=== PATIENT | female | born 1995 | race Caucasian/White ===

== ENCOUNTER 2018-11-29 03:11 | Emergency (ER) | payer SELFPAY ==
[2018-11-29] MEDS ORDERED: NORMAL SALINE 1000 ML 1,000 ML IV ONE (05:21)
[2018-11-29] MEDS ORDERED: ONDANSETRON HCL INJ/PF 4 MG/2 ML SDV IV ONE (05:21)
--- NOTE | 2018-11-29 05:23 | ER Document Report ---
ED Medical Screen (RME) - General Chief Complaint: Vomiting Stated Complaint: ABDOMINAL PAIN Time Seen by Provider: 11/29/18 05:17 Notes: 23-year-old female with chief complaint of vomiting, vomiting blood, generalized upper abdominal pain. She drank a shot of tequila and several beers tonight reportedly. She states that she threw up more blood, threw up again but with less blood, and then the most recent time she threw up in the ED there was a tiny helen of blood in it. She reports being diagnosed with peptic ulcers but she has never had an endoscopy she is on oral contraceptive, no other meds. She denies frequent alcohol. TRAVEL OUTSIDE OF THE [place] IN LAST 30 DAYS: No Past Medical History - Social History Chew tobacco use (# tins/day): No Frequency of alcohol use: Social Drug Abuse: None Renal/ Medical History: Denies: Hx Peritoneal Dialysis GI Medical History: Reports: Hx Ulcer - GI ulcers Psychiatric Medical History: Reports: Hx Attention Deficit Hyperactivity Disorder Past Surgical History: Reports: Hx Tonsillectomy Physical Exam - Vital signs Vitals: Temp Pulse Resp BP Pulse Ox 98.0 F 122 H 16 112/71 97 11/29/18 03:20 11/29/18 03:20 11/29/18 03:20 11/29/18 03:20 11/29/18 03:20 - General General appearance: Appears well In distress: None - Cardiovascular Rhythm: Regular, Tachycardia Heart sounds: Normal auscultation, S1 appreciated, S2 appreciated - Abdominal Tenderness: Tender - Minimal generalized upper abdominal tenderness without guarding Course - Re-evaluation Re-evalutation: There is an emesis bag in the room with small amount of foamy vomit and questionable tiny amount of blood. Does not appear to have significant hematemesis occurring. Work-up pending. I have greeted and performed a rapid initial assessment of this patient. A comprehensive ED assessment and evaluation of the patient, analysis of test results and completion of the medical decision making process will be conducted by additional ED providers. - Vital Signs Vital signs: Temp Pulse Resp BP Pulse Ox 98.0 F 122 H 16 112/71 97 11/29/18 03:20 11/29/18 03:20 11/29/18 03:20 11/29/18 03:20 11/29/18 03:20
[2018-11-29 05:35] LABS: AMORPHOUS SEDIMENT,URINE TRACE /HPF; APPEARANCE,URINE SLIGHTLY-CLOUDY; BILIRUBIN,URINE NEGATIVE (NEGATIVE); COLOR,URINE STRAW; GLUCOSE, URINE NEGATIVE (NEGATIVE); KETONES,URINE NEGATIVE (NEGATIVE); LEUKOCYTE ESTERASE,URINE NEGATIVE (NEGATIVE); NITRITE,URINE NEGATIVE (NEGATIVE); PROTEIN,URINE NEGATIVE (NEGATIVE); URINE SPECIFIC GRAVITY 1.005; UROBILINOGEN,URINE NEGATIVE mg/dL (<2.0)
[2018-11-29 06:04] LABS: ABSOLUTE BASOPHILS # (AUTO) 0.1 10^3/uL (0.0-0.2); ABSOLUTE EOSINOPHILS # (AUTO) 0.3 10^3/uL (0.0-0.6); ABSOLUTE LYMPHOCYTES (AUTO) 2.1 10^3/uL (0.5-4.7); ABSOLUTE MONOCYTES (AUTO) 0.4 10^3/uL (0.1-1.4); ABSOLUTE NEUT (AUTO) 7.7 10^3/uL (1.7-8.2); BASOPHILS % (AUTO) 0.5 % (0-2); EOSINOPHILS % (AUTO) 2.7 % (0-6); HEMATOCRIT 42.9 % (36.0-47.0); HEMOGLOBIN 14.7 g/dL (12.0-15.5); LYMPHOCYTES % (AUTO) 20.2 % (13-45); MEAN CORPUSCULAR HEMOGLOBIN 27.7 pg (27.0-33.4); MEAN CORPUSCULAR HGB CONC 34.2 g/dL (32.0-36.0); MEAN CORPUSCULAR VOLUME 81 fl (80-97); MONOCYTES % (AUTO) 3.5 % (3-13); PLATELET COUNT 302 10^3/uL (150-450); RED CELL DISTRIBUTION WIDTH 12.8 % (11.5-14.0); SEGMENTED NEUTROPHILS % (AUTO) 73.1 % (42-78); TOTAL CELLS COUNTED % (AUTO) 100 %; WHITE BLOOD COUNT 10.5 10^3/uL (4.0-10.5)
[2018-11-29 06:18] LABS: ALANINE AMINOTRANSFERASE 12 U/L (9-52); ALBUMIN 3.7 g/dL (3.5-5.0); ALKALINE PHOSPHATASE 73 U/L (38-126); ANION GAP 8 (5-19); ASPARTATE AMINO TRANSFERASE 20 U/L (14-36); BILIRUBIN,DIRECT 0.2 mg/dL (0.0-0.4); BILIRUBIN,TOTAL 0.2 mg/dL (0.2-1.3); BLOOD UREA NITROGEN 8 mg/dL (7-20); CALCIUM 8.7 mg/dL (8.4-10.2); CARBON DIOXIDE 23 mmol/L (22-30); CHLORIDE 110 mmol/L (98-107); GLUCOSE 84 mg/dL (75-110); LIPASE 66.3 U/L (23-300); POTASSIUM 4.6 mmol/L (3.6-5.0); SODIUM 141.3 mmol/L (137-145); TOTAL PROTEIN 6.5 g/dL (6.3-8.2)
[2018-11-29] MEDS ORDERED: PANTOPRAZOLE SODIUM 40 MG VIAL IV ONE (06:57)
[2018-11-29] MEDS ORDERED: MAG HYDROX/AL HYDROX/SIMETH SUSP 30 ML UDCUP PO ONE (06:58)
[2018-11-29 07:17] LABS: ALCOHOL 157 mg/dL (NONE DETECTED)
--- NOTE | 2018-11-29 08:34 | ER Document Report ---
Entered by OSMAR BUSTILLOS SCRIBE 11/29/18 0657 Acting as scribe for:CHEMO NARANJO MD ED General - General Chief Complaint: Vomiting Stated Complaint: ABDOMINAL PAIN Time Seen by Provider: 11/29/18 05:17 Notes: Patient is a 23-year-old female presenting to the emergency department complaining of vomiting with associated abdominal pain. Patient states that she went out drinking last night at 21:00 and that she had one shot of tequila with 4 beers. Patient states that she drank until 02:00 and that at 02:30 she began hematemesis. Patient states that her last menstrual period. Patient states that she has a history of ulcers but has not had any for awhile. TRAVEL OUTSIDE OF THE [place] IN LAST 30 DAYS: No - Related Data Allergies/Adverse Reactions: No Known Allergies Allergy (Unverified 11/29/18 07:34) Past Medical History - General Information source: Patient - Social History Smoking Status: Current Every Day Smoker Chew tobacco use (# tins/day): No Frequency of alcohol use: Social Drug Abuse: None Family History: Reviewed & Not Pertinent Patient has suicidal ideation: No Patient has homicidal ideation: No GI Medical History: Reports: Hx Ulcer - GI ulcers Psychiatric Medical History: Reports: Hx Attention Deficit Hyperactivity Disorder Past Surgical History: Reports: Hx Tonsillectomy Review of Systems - Review of Systems Constitutional: No symptoms reported EENT: No symptoms reported Cardiovascular: No symptoms reported Respiratory: No symptoms reported Gastrointestinal: See HPI, Abdominal pain, Blood in vomit Genitourinary: No symptoms reported Female Genitourinary: No symptoms reported Musculoskeletal: No symptoms reported Skin: No symptoms reported Hematologic/Lymphatic: No symptoms reported Neurological/Psychological: No symptoms reported -: Yes All other systems reviewed and negative Physical Exam - Vital signs Vitals: Temp Pulse Resp BP Pulse Ox 98.0 F 122 H 16 112/71 97 11/29/18 03:20 11/29/18 03:20 11/29/18 03:20 11/29/18 03:20 11/29/18 03:20 - Notes Notes: Physical Exam: General: Alert, appears well, alcohol odor. HEENT: Normocephalic. Atraumatic. PERRL. Extraocular movements intact. Oropha rynx clear. Neck: Supple. Non-tender. Respiratory: No respiratory distress. Clear and equal breath sounds bilaterally. Cardiovascular: Regular rate and rhythm. Abdominal: Left lower abdomen mildly tenderness to palpation, epigastric tenderness to palpation. No distension. Normal Bowel Sounds. Back: Non-tender. No deformity or step off. Extremities: Moves all four extremities. Upper extremities: Normal inspection. Normal ROM. Lower extremities: Normal inspection. No edema. Normal ROM. Neurological: Normal cognition. AAOx4. Normal speech. Psychological: Normal affect. Normal Mood. Skin: Warm. Dry. Normal color. Course - Re-evaluation Re-evalutation: 11/29/18 08:34 No further vomiting since patient is been here. She is sleeping at this time. She is awakened for reevaluation. I did review what her real alcohol consumption was last night, she does not deny this. She is advised to avoid anything that could make an ulcer worse for the next several days. See the discharge instructions. - Vital Signs Vital signs: Temp Pulse Resp BP Pulse Ox 98.0 F 122 H 16 112/71 97 11/29/18 03:20 11/29/18 03:20 11/29/18 03:20 11/29/18 03:20 11/29/18 03:20 - Laboratory Result Diagrams: 11/29/18 05:50 11/29/18 05:50 Laboratory results interpreted by me: 11/29/18 11/29/18 11/29/18 05:10 05:50 05:50 RBC 5.30 H Chloride 110 H Urine Blood SMALL H Discharge - Discharge Clinical Impression: Hematemesis Qualifiers: Nausea presence: with nausea Qualified Code(s): K92.0 - Hematemesis Acute alcohol intoxication Qualifiers: Complication of substance-induced condition: uncomplicated Qualified Code(s): F10.920 - Alcohol use, unspecified with intoxication, uncomplicated Condition: Stable Disposition: HOME, SELF-CARE Additional Instructions: Acute Alcohol Intoxication Your evaluation revealed very high levels of alcohol. You can from drinking a large amount of alcohol rapidly! Further, there's the risk of falls, traffic accidents, and fights. A high portion (about 50 percent) of the serious injuries seen in hospital emergency rooms are caused by alcohol. Alcohol overdosage is usually due to an underlying emotional or psychiatric problem. You may benefit from counselling. If "binge" drinking is an ongoing problem for you, or if you drink ANY AMOU NT of alcohol EVERY day, you most likely have a tendency to alcoholism. You should avoid alcohol totally. We can refer you for treatment. Persons with alcohol problems are often also prone to other addictions -- you should discuss any use of medications or drugs with the doctor. You should be watched at home for the next several hours by someone who has not been drinking. Get extra fluids for the next 24 hours. Call the doctor if there is repeated vomiting, increasing headache, decreasing level of alertness, or any other worsening. Ulcer You MAY have an ulcer. An ulcer is an erosion of the lining of the stomach or duodenum. It's a hole "burned out" by acid. Typically, this causes a burning or gnawing upper abdominal pain. Bleeding may occur from the ulcer. Ulcers may be started by alcohol or medicines, or by infection of the stomach. Antacids may be taken for pain, and may allow the ulcer to heal when taken after meals and at bedtime. More commonly, acid- suppressing drugs or ulcer- protective drugs (like Carafate) are prescribed. Avoid aspirin, ibuprofen, caffeine, tobacco, and alcohol. Repeat tests to confirm healing of the ulcer may be necessary. Some ulcers seem to be brought on by infection. If the doctor feels this is likely, you may be treated with bismuth for several weeks. If the abdominal pain worsens, or there's evidence of bleeding (such as black, tarry stool, bloody or black vomit, or lightheadedness), you should call the doctor or return immediately. Your episodes of vomiting blood was most likely related to the heavy alcohol consumption this evening. You should drink plenty of water today. Avoid spicy foods, citrus type drinks, carbonated beverages, alcohol. Take antacids today between meals and at bedtime. Do not take aspirin, Motrin, or Aleve. Take Prilosec OTC twice daily for the next several days. Follow-up with a local primary care provider if not improving. RETURN TO THE EMERGENCY ROOM IF ANY NEW OR WORSENING SYMPTOMS. Scribe Attestation: 11/29/18 08:16 I personally performed the services described in the documentation, reviewed and edited the documentation which was dictated to the scribe in my presence, and it accurately records my words and actions. I personally performed the services described in the documentation, reviewed and edited the documentation which was dictated to the scribe in my presence, and it accurately records my words and actions.
[2018-11-29 09:08] VITALS: BP 94/45
== END 2018-11-29 09:10 | disposition home or self-care (01) ==
LOC: ER 03:11
DX: K92.0 Hematemesis (principal); F10.120 Alcohol abuse with intoxication, uncomplicated; R10.9 Unspecified abdominal pain; F17.200 Nicotine dependence, unspecified, uncomplicated; R10.816 Epigastric abdominal tenderness; R10.819 Abdominal tenderness, unspecified site; Z87.11 Personal history of peptic ulcer disease
CPT/HCPCS: 99284; 36415; 80307; 83690; 85025; 81025; 80053; 81001; S0164; J2405; J7030

== ENCOUNTER 2019-02-15 20:27 | Emergency (ER) | payer MEDICAID ==
--- NOTE | 2019-02-15 21:14 | ER Document Report ---
ED Medical Screen (RME) - General Chief Complaint: Pain With Urination Stated Complaint: FEVER Time Seen by Provider: 02/15/19 21:10 Mode of Arrival: Ambulatory Information source: Patient Notes: 23-year-old female presents to ED for pain with urination, fever and pelvic cramping for the last 3 days. She states that her temperature was the highest at 101 2 days ago. She states she has not tested it today. She states she has been nauseated off and on and she is a little nauseated at this time. She states her last menstrual cycle was beginning of January. She states she has not taken any home test as of yet. Patient is alert oriented respirations regular and unlabored speaking in full sentences and walks with even steady gait. 3 cig a day, drinks every other w/e. She denies any illicit drugs. I have greeted and performed a rapid initial assessment of this patient. A comprehensive ED assessment and evaluation of the patient, analysis of test results and completion of medical decision making process will be conducted by an additional ED providers. TRAVEL OUTSIDE OF THE [place] IN LAST 30 DAYS: No - Related Data Allergies/Adverse Reactions: No Known Allergies Allergy (Verified 02/15/19 21:10) Past Medical History Renal/ Medical History: Denies: Hx Peritoneal Dialysis GI Medical History: Reports: Hx Ulcer - GI ulcers Psychiatric Medical History: Reports: Hx Attention Deficit Hyperactivity Disorde r Past Surgical History: Reports: Hx Tonsillectomy Physical Exam - Vital signs Vitals: Temp Pulse Resp BP Pulse Ox 98.2 F 93 16 103/67 98 02/15/19 21:00 02/15/19 21:00 02/15/19 21:00 02/15/19 21:00 02/15/19 21:00 Course - Vital Signs Vital signs: Temp Pulse Resp BP Pulse Ox 98.2 F 93 16 103/67 98 02/15/19 21:00 02/15/19 21:00 02/15/19 21:00 02/15/19 21:00 02/15/19 21:00
[2019-02-15] MEDS ORDERED: ONDANSETRON 4 MG TAB.RAPDIS PO ONE (21:15)
[2019-02-15] MEDS ORDERED: ONDANSETRON 4 MG TAB.RAPDIS ONE (21:15)
[2019-02-15 22:07] LABS: APPEARANCE,URINE CLOUDY; BILIRUBIN,URINE NEGATIVE (NEGATIVE); COLOR,URINE YELLOW; GLUCOSE, URINE NEGATIVE (NEGATIVE); KETONES,URINE NEGATIVE (NEGATIVE); LEUKOCYTE ESTERASE,URINE MODERATE (NEGATIVE); NITRITE,URINE NEGATIVE (NEGATIVE); PROTEIN,URINE 30 mg/dL (NEGATIVE); URINE SPECIFIC GRAVITY 1.016; UROBILINOGEN,URINE NEGATIVE mg/dL (<2.0)
[2019-02-15 22:09] LABS: HEMATOCRIT 37.1 % (36.0-47.0); HEMOGLOBIN 13.2 g/dL (12.0-15.5); MEAN CORPUSCULAR HEMOGLOBIN 28.2 pg (27.0-33.4); MEAN CORPUSCULAR HGB CONC 35.6 g/dL (32.0-36.0); MEAN CORPUSCULAR VOLUME 79 fl (80-97); PLATELET COUNT 220 10^3/uL (150-450); RED BLOOD COUNT 4.69 10^6/uL (3.72-5.28); RED CELL DISTRIBUTION WIDTH 12.7 % (11.5-14.0); WHITE BLOOD COUNT 5.1 10^3/uL (4.0-10.5)
[2019-02-15 22:23] LABS: ALBUMIN 3.8 g/dL (3.5-5.0); ALKALINE PHOSPHATASE 90 U/L (38-126); ANION GAP 8 (5-19); ASPARTATE AMINO TRANSFERASE 43 U/L (14-36); BILIRUBIN,DIRECT 0.1 mg/dL (0.0-0.4); BILIRUBIN,TOTAL 0.3 mg/dL (0.2-1.3); BLOOD UREA NITROGEN 7 mg/dL (7-20); CALCIUM 9.4 mg/dL (8.4-10.2); CARBON DIOXIDE 27 mmol/L (22-30); CHLORIDE 101 mmol/L (98-107); GLUCOSE 84 mg/dL (75-110); POTASSIUM 4.1 mmol/L (3.6-5.0); TOTAL PROTEIN 6.6 g/dL (6.3-8.2)
[2019-02-15 22:41] LABS: ABSOLUTE LYMPHOCYTES# (MANUAL) 2.9 10^3/uL (0.5-4.7); ABSOLUTE MONOCYTES # (MANUAL) 0.1 10^3/uL (0.1-1.4); BAND NEUTROPHILS % (MANUAL) 5 % (3-5); BASOPHILS % (MANUAL) 0 % (0-2); EOSINOPHILS % (MANUAL) 4 % (0-6); LYMPHOCYTES % (MANUAL) 52 % (13-45); MONOCYTES % (MANUAL) 2 % (3-13); SEGMENTED NEUTROPHILS % (MAN) 32 % (42-78); TOTAL CELLS COUNTED 100
[2019-02-15 22:42] LABS: PLATELET COMMENT ADEQUATE; RBC MORPHOLOGY COMMENT NORMO-CYTIC/CHROMIC
[2019-02-16] MEDS ORDERED: NORMAL SALINE 1000 ML 1,000 ML IV ONE (00:02)
[2019-02-16] MEDS ORDERED: CEFTRIAXONE INJ 1000 MG VIAL IV ONE (00:02)
--- NOTE | 2019-02-16 01:35 | RADIOLOGY REPORT (SQ) ---
EXAM DESCRIPTION: US LIMITED COMPLETED DATE/TME: 02/16/2019 00:01 CLINICAL HISTORY: 23 years Female, pain COMPARISON: None TECHNIQUE: Transvaginal. LIMITATIONS: None. FINDINGS: No intrauterine gestation confirmed. There is a possible intrauterine gestational sac with decidual reaction which if viable corresponds with gestational age of five weeks and three days estimated on sac diameter of 0.7 cm. No pole. No yolk sac. No cardiac activity. 2.7 cm right ovary contains a 1.7 cm complex cystic component with peripheral vascularity, "ring of fire "pattern, nonspecific. 2.0 cm left ovary. 3.1 cm cervical length. No free fluid. IMPRESSION: No intrauterine confirmed. Differential diagnosis includes early viable intrauterine gestation, gestational loss, and ECTOPIC gestation. Recommend 48 -72 hours laboratory/sonographic surveillance.
--- NOTE | 2019-02-16 02:30 | ER Document Report ---
ED GI/ - General Chief Complaint: Pain With Urination Stated Complaint: FEVER Time Seen by Provider: 02/15/19 21:10 Mode of Arrival: Ambulatory Information source: Patient Notes: 23-year-old female with dysuria frequency some lower abdominal pressure. No discharge no bleeding. Last period was at the beginning of January she thinks. TRAVEL OUTSIDE OF THE [place] IN LAST 30 DAYS: No - HPI Patient complains to provider of: Abdominal pain - Related Data Allergies/Adverse Reactions: No Known Allergies Allergy (Verified 02/15/19 21:10) Past Medical History - General Information source: Patient - Social History Smoking Status: Current Every Day Smoker Frequency of alcohol use: Occasional Drug Abuse: None Family History: Reviewed & Not Pertinent Patient has suicidal ideation: No Patient has homicidal ideation: No - Medical History Medical History: Negative Renal/ Medical History: Denies: Hx Peritoneal Dialysis GI Medical History: Reports: Hx Ulcer - GI ulcers Psychiatric Medical History: Reports: Hx Attention Deficit Hyperactivity Disorder Past Surgical History: Reports: Hx Tonsillectomy Review of Systems - Review of Systems Gastrointestinal: Abdominal pain Genitourinary: Dysuria, Frequency, Urgency Female Genitourinary: denies: Vaginal discharge, Vaginal bleeding, Vaginal odor -: Yes All other systems reviewed and negative Physical Exam - Vital signs Vitals: Temp Pulse Resp BP Pulse Ox 98.2 F 93 16 103/67 98 02/15/19 21:00 02/15/19 21:00 02/15/19 21:00 02/15/19 21:00 02/15/19 21:00 - Notes Notes: PHYSICAL EXAMINATION: GENERAL: Well-appearing, well-nourished and in no acute distress. HEAD: Atraumatic, normocephalic. EYES: Pupils equal round and reactive to light, extraocular movements intact, sclera anicteric, conjunctiva are normal. ENT: nares patent, oropharynx clear without exudates. Moist mucous membranes. NECK: Normal range of motion, supple without lymphadenopathy LUNGS: Breath sounds clear to auscultation bilaterally and equal. No wheezes rales or rhonchi. HEART: Regular rate and rhythm without murmurs ABDOMEN: Soft, tender suprapubic right lower pelvic area. No guarding no reboun d., normoactive bowel sounds. No guarding, no rebound. No masses appreciated. EXTREMITIES: Normal range of motion, no pitting or edema. No cyanosis. NEUROLOGICAL: No focal neurological deficits. Moves all extremities spontaneously and on command. PSYCH: Normal mood, normal affect. SKIN: Warm, Dry, normal turgor, no rashes or lesions noted. Course - Re-evaluation Re-evalutation: 02/16/19 02:[address] 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 Reviewed the ultrasound and lab work with her. She will come see the patient and evaluate her at this time. Suspicion is a possible ectopic. No free fluid she is hemodynamically stable at this time. 02/16/19 03:31 Dr. oreilly has come down see the patient. and will discharge her home with ectopic precautions and follow-up Monday in her office. - Vital Signs Vital signs: Temp Pulse Resp BP Pulse Ox 97.9 F 101 H 16 102/57 L 98 02/15/19 23:00 02/15/19 23:00 02/15/19 21:00 02/15/19 23:00 02/15/19 23:00 - Laboratory Result Diagrams: 02/15/19 21:30 02/15/19 21:30 Laboratory results interpreted by me: 02/15/19 02/15/19 02/15/19 21:30 21:30 21:30 MCV 79 L Seg Neuts % (Manual) 32 L Lymphocytes % (Manual) 52 H Monocytes % (Manual) 2 L Sodium 135.5 L AST 43 H Serum HCG, Qual POSITIVE H Beta HCG, Quant Urine Protein Ur Leukocyte Esterase 02/15/19 02/15/19 21:30 21:30 MCV Seg Neuts % (Manual) Lymphocytes % (Manual) Monocytes % (Manual) Sodium AST Serum HCG, Qual Beta HCG, Quant 4950.10 H Urine Protein 30 H Ur Leukocyte Esterase MODERATE H - Diagnostic Test Radiology reviewed: Reports reviewed - Ultrasound shows no IUP seen. On the right ovary there is a "1.7 cm cystic structure with ring of fire characteristic. Discharge - Discharge Clinical Impression: Abdominal pain complicating Ectopic Qualifiers: Location of ectopic : unspecified location Intrauterine status: unspecified Qualified Code(s): O00.90 - Unspecified ectopic without intrauterine Condition: Stable Disposition: HOME, SELF-CARE Instructions: Abdominal Pain ([facility]), Ectopic Precaution ([facility]) Additional Instructions: Return to the ER if any concerns. Return to the ER if worsening pain. Return to the ER if any problems arise. Call the office Monday morning for an appointment to be seen Monday. Dr. oreilly is expecting you. Prescriptions: Nitrofurantoin/Nitrofuran Mac [Macrobid 100 mg Capsule] 1 tab PO BID #10 capsule Referrals: SERGEY ROGERS, [ACTIVE STAFF] - Follow up as needed
--- NOTE | 2019-02-16 03:50 | PDOC CONSULTATION ---
Consultation Consult Date: 02/16/19 Provider Consulted: SERGEY ROSEN History of Present Illness History of Present Illness: JODY KNIGHT is a 23 year old G1 presented to the emergency department complaining of a low-grade fever for approximately 3 days. Patient was also complaining of some pelvic pressure and frequency of urination. Patient states that her last menstrual period was in January. Patient denies vaginal bleeding. Patient denies nausea and vomiting. Patient has no change in appetite or bowel habits. Patient denies chest pain, shortness of breath and abdominal pain. Past Medical History LMP: unknown "the beginning of last month" Gynecological Infection: No Psychiatric Medical History: Reports: Attention Deficit Hyperactivity Disorder Social History Lives with: Family Smoking Status: Current Every Day Smoker Cigarettes Packs Per Day: 0.5 Frequency of Alcohol Use: Occasional Hx Recreational Drug Use: No Family History Family History: Reviewed & Not Pertinent Parental Family History Reviewed: Yes - N/A Children Family History Reviewed: NA Sibling(s) Family History Reviewed.: NA Medication/Allergy Home Medications: Nitrofurantoin/Nitrofuran Mac [Macrobid 100 mg Capsule] 1 tab PO BID #10 capsule 02/16/19 Allergies/Adverse Reactions: No Known Allergies Allergy (Verified 02/15/19 21:10) Review of Systems Constitutional: PRESENT: as per HPI Cardiovascular: PRESENT: as per HPI Respiratory: PRESENT: as per HPI Gastrointestinal: PRESENT: as per HPI Genitourinary: PRESENT: as per HPI Physical Exam - Physical Exam Vital Signs: Temp Pulse Resp BP Pulse Ox 97.9 F 101 H 16 102/57 L 98 02/15/19 23:00 02/15/19 23:00 02/15/19 21:00 02/15/19 23:00 02/15/19 23:00 Intake & Output 02/14/19 02/15/19 02/16/19 06:59 06:59 06:59 Intake Total 1000 Balance 1000 Weight 79.7 kg General appearance: PRESENT: no acute distress Respiratory exam: PRESENT: clear to auscultation shellie Cardiovascular exam: PRESENT: RRR GI/Abdominal exam: PRESENT: normal bowel sounds, soft - Nontender to palpation Extremities exam: ABSENT: calf tenderness, clubbing, full ROM, joint swelling, pedal edema, tenderness, +1 edema, +2 edema, other Result Laboratory Results: 02/15/19 21:30 02/15/19 21:30 02/15/19 02/15/19 02/15/19 21:30 21:30 21:30 WBC 5.1 RBC 4.69 Hgb 13.2 Hct 37.1 MCV 79 L MCH 28.2 MCHC 35.6 RDW 12.7 Plt Count 220 Seg Neutrophils % Not Reportable Sodium 135.5 L Potassium 4.1 Chloride 101 Carbon Dioxide 27 Anion Gap 8 BUN 7 Creatinine 0.79 Est GFR ( Amer) > 60 Est GFR (Non-Af Amer) Glucose 84 Calcium 9.4 Total Bilirubin 0.3 AST 43 H Alkaline Phosphatase 90 Total Protein 6.6 Albumin 3.8 Lipase 118.5 Serum HCG, Qual POSITIVE H Urine Color Urine Appearance Urine pH Ur Specific [place] Urine Protein Urine Glucose (UA) Urine Ketones Urine Blood Urine Nitrite Ur Leukocyte Esterase Urine WBC (Auto) Urine RBC (Auto) Blood Type 02/15/19 02/15/19 02/16/19 21:30 21:30 00:15 WBC RBC Hgb Hct MCV MCH MCHC RDW Plt Count Seg Neutrophils % Sodium Cancelled Potassium Cancelled Chloride Cancelled Carbon Dioxide Cancelled Anion Gap Cancelled BUN Cancelled Creatinine Cancelled Est GFR ( Amer) Cancelled Est GFR (Non-Af Amer) Cancelled Glucose Cancelled Calcium Cancelled Total Bilirubin Cancelled AST Cancelled Alkaline Phosphatase Cancelled Total Protein Cancelled Albumin Cancelled Lipase Serum HCG, Qual Urine Color YELLOW Urine Appearance CLOUDY Urine pH 9.0 Ur Specific [place] 1.016 Urine Protein 30 H Urine Glucose (UA) NEGATIVE Urine Ketones NEGATIVE Urine Blood NEGATIVE Urine Nitrite NEGATIVE Ur Leukocyte Esterase MODERATE H Urine WBC (Auto) 8 Urine RBC (Auto) 4 Blood Type B POSITIVE Impressions: Obstetrics Ultrasound 02/16/19 00:01 IMPRESSION: No intrauterine confirmed. Differential diagnosis includes early viable intrauterine gestation, gestational loss, and ECTOPIC gestation. Recommend 48 -72 hours laboratory/sonographic surveillance. Assessment & Plan - Diagnosis (1) Fever of unknown origin Is this a current diagnosis for this admission?: Yes (2) Positive blood test Is this a current diagnosis for this admission?: Yes (3) with inconclusive viability Qualifiers: Fetus number: single or unspecified fetus Qualified Code(s): O36.80X0 - with inconclusive viability, not applicable or unspecified Is this a current diagnosis for this admission?: Yes (4) Tobacco use Is this a current diagnosis for this admission?: Yes (5) Type A blood, Rh positive Is this a current diagnosis for this admission?: Yes - Time Time Spent: 30 to 50 Minutes Smoking Cessation Education: 3 to 10 minutes Anticipated discharge: Home - Plan Summary Plan Summary: 1. I reviewed the ultrasound results with the patient and informed her that more than likely she has a right ectopic . However, after reviewing the ultrasound images, and considering the radiology impression, I would like her to have a repeat ultrasound, performed at [facility] on Monday, if this patient remains stable. At this time her QBHCG is 4900 and the possible mass is 1.7 cm. This is her first and she would be a good candidate for methotrexate, if she remains stable. I gave her a copy of the ectopic algorithm and explained her how methotrexate works and that she would be a good candidate, as long as she is stable. With this option, she would preserve her right fallopian tube. We discussed the possible side effects of the medication and her absolute need for consistent follow-up/compliance. She was instructed to call our office at 8 AM on Monday morning, which I provided her the office number and instructed her to specifically request an appointment for an ectopic follow-up with ultrasound. She stated that she was agreeable to this plan. 2. Ectopic precautions given. I forewarned her that a ruptured ectopic will bleed quickly. I instructed her to be on high alert, if her pain increases. I instructed her to be mindful of pain in her upper abdomen, chest pressure or difficulty taking a breath. These are all signs of blood in the abdomen. 3. Plan discussed with Dr. Guo, who informed me that he will reiterate ectopic precautions and her need for absolute follow-up on Monday.
[2019-02-16 04:42] VITALS: BP 103/67
== END 2019-02-16 04:40 | disposition home or self-care (01) ==
LOC: ER 20:27
DX: O00.90 Unspecified ectopic pregnancy without intrauterine pregnancy (principal); O26.899 Other specified pregnancy related conditions, unspecified trimester; R30.0 Dysuria; R35.0 Frequency of micturition; R39.15 Urgency of urination; R10.9 Unspecified abdominal pain; O99.330 Smoking (tobacco) complicating pregnancy, unspecified trimester; F17.210 Nicotine dependence, cigarettes, uncomplicated; Z3A.00 Weeks of gestation of pregnancy not specified
CPT/HCPCS: 86900; 86901; 36415; 87086; 84702; 83690; 84703; 85025; 87088; 80053; 81001; 87186; 76815; S0119; J0696; J7030

== ENCOUNTER 2019-05-03 18:56 | Emergency (ER) | payer MEDICAID ==
[2019-05-03] MEDS ORDERED: ACETAMINOPHEN 325 MG TABLET PO ONE (20:15)
--- NOTE | 2019-05-03 23:52 | ER Document Report ---
ED General - General Chief Complaint: Cold Symptoms Stated Complaint: SORE THROAT/EAR PAIN Time Seen by Provider: 05/03/19 23:13 Primary Care Provider: ADOLFO,MYRON [Primary Care Provider] - Follow up as needed TRAVEL OUTSIDE OF THE [place] IN LAST 30 DAYS: No - Related Data Allergies/Adverse Reactions: No Known Allergies Allergy (Verified 02/15/19 21:10) Past Medical History - Social History Smoking Status: Never Smoker Family History: Reviewed & Not Pertinent Patient has suicidal ideation: No Patient has homicidal ideation: No Renal/ Medical History: Denies: Hx Peritoneal Dialysis GI Medical History: Reports: Hx Ulcer - GI ulcers Psychiatric Medical History: Reports: Hx Attention Deficit Hyperactivity Disorder Past Surgical History: Reports: Hx Tonsillectomy Physical Exam - Vital signs Vitals: Temp Pulse Resp BP Pulse Ox 98.2 F 91 20 113/65 99 05/03/19 19:00 05/03/19 19:00 05/03/19 19:00 05/03/19 19:00 05/03/19 19:00 - Notes Notes: Patient presents emerge department planing of sore throat and right ear pain for 1 day. She has no dysphagia no drainage from the ear or decrease in hearing. She is felt warm but no actual fevers. Has pain shortness of breath nausea vomiting or abdominal pain. About 16 weeks along in with no complications of any contractions or rupture of the membranes no urinary symptoms Medical history is unremarkable Social history she does smoke and drink Review of systems pertinent positives and negatives in HPI otherwise all the systems were reviewed and acutely negative PHYSICIAN EXAM -vital signs are noted triage note and note from triage reviewed GENERAL: Well-appearing, well-nourished and in _no acute distress she is been eating crackers and drinking HEAD: Atraumatic, normocephalic. EYES: Pupils equal round and reactive to light, extraocular movements intact, sclera anicteric, conjunctiva are normal. ENT: nares patent, oropharynx clear without exudates. Tonsils not enlarged uvula is midline there is no trismus is handling secretions well moist mucous membranes. Ears are clear tragus is nontender face is nontender NECK: supple without lymphadenopathy no meningeal signs LUNGS: Breath sounds clear to auscultation bilaterally and equal. No wheezes rales or rhonchi. HEART: Regular rate and rhythm without murmurs ABDOMEN: Soft, nontender, normoactive bowel sounds. Spleen is not enlarged EXTREMITIES: No deformity, no edema. NEUROLOGICAL: No focal neurological deficits. Moves all extremities spontaneously and on command. PSYCH: Normal mood, normal affect. SKIN: Warm, Dry, normal turgor, no rashes or lesions noted. BACK-nontender in the midline Course - Re-evaluation Re-evalutation: 05/03/19 23:51 Patient presents with a viral syndrome as well can be discharged home 1 dictation was done using voice recognition software. There may be some grammatical errors which are unintentional - Vital Signs Vital signs: Temp Pulse Resp BP Pulse Ox 98.0 F 91 20 113/65 99 05/03/19 22:45 05/03/19 19:00 05/03/19 19:00 05/03/19 19:00 05/03/19 19:00 Discharge - Discharge Clinical Impression: Viral syndrome Disposition: HOME, SELF-CARE Instructions: Viral Syndrome ([facility]), Acetaminophen Additional Instructions: Please review the discharge instructions, they will tell you about your disease/injury and what you need to return to the ED for Return to the ED if you feel worse or can follow-up with your family doctor Follow-up with your family doctor in 3 to 5 days if not better. Return if you are unable to swallow any liquids including your own saliva or you develop any drainage from the ear Referrals: [facility]AL[facility],NO [Primary Care Provider] - Follow up as needed
[2019-05-03 23:56] VITALS: BP 121/82
== END 2019-05-03 23:56 | disposition home or self-care (01) ==
LOC: ER 18:56
DX: O98.519 Other viral diseases complicating pregnancy, unspecified trimester (principal); B34.9 Viral infection, unspecified; O99.519 Diseases of the respiratory system complicating pregnancy, unspecified trimester; J02.9 Acute pharyngitis, unspecified; O26.899 Other specified pregnancy related conditions, unspecified trimester; H92.01 Otalgia, right ear; O99.330 Smoking (tobacco) complicating pregnancy, unspecified trimester; Z3A.00 Weeks of gestation of pregnancy not specified; Z90.89 Acquired absence of other organs
CPT/HCPCS: 99282; 87070; 87880; J3490

== ENCOUNTER 2019-08-06 20:03 | Outpatient (CLI) | payer MEDICAID ==
[2019-08-06 21:05] LABS: APPEARANCE,URINE CLOUDY; BILIRUBIN,URINE NEGATIVE (NEGATIVE); COLOR,URINE YELLOW; GLUCOSE, URINE NEGATIVE (NEGATIVE); KETONES,URINE NEGATIVE (NEGATIVE); LEUKOCYTE ESTERASE,URINE NEGATIVE (NEGATIVE); NITRITE,URINE NEGATIVE (NEGATIVE); PROTEIN,URINE NEGATIVE (NEGATIVE); URINE SPECIFIC GRAVITY 1.019
[2019-08-06 21:23] LABS: URINE AMPHETAMINES SCREEN NEGATIVE; URINE BARBITURATES SCREEN NEGATIVE; URINE BENZODIAZEPINES SCREEN NEGATIVE; URINE COCAINE SCREEN NEGATIVE; URINE MARIJUANA (THC) SCREEN NEGATIVE; URINE METHADONE SCREEN NEGATIVE; URINE PHENCYCLIDINE SCREEN NEGATIVE
--- NOTE | 2019-08-06 22:59 | RADIOLOGY REPORT (SQ) ---
EXAM DESCRIPTION: US LIMITED COMPLETED DATE/TME: 08/06/2019 00:00 CLINICAL HISTORY: 24 years, Female, cervical length COMPARISON: None. TECHNIQUE: Limited OB ultrasound LIMITATIONS: None. FINDINGS: Iliac fluid index 13.8 cm. Single live IUP in cephalic presentation with heart tones 141 bpm. The placenta is fundal in location with a grade 2 echotexture. Cervical length is 2.9 cm. A detailed anatomic assessment was not performed at this time. IMPRESSION: Limited OB ultrasound, as above. copyright 2010 [employer]- All Rights Reserved
== END 2019-08-06 23:08 | disposition home or self-care (01) ==
LOC: LC 20:03
PROVIDERS: ATTEND Student in an Organized Health Care Education/Training Program
PROC: 4A1HXCZ Monitoring of Products of Conception, Cardiac Rate, External Approach (ICD-10-PCS; principal; 2019-08-06)
DX: Z36.89 Encounter for other specified antenatal screening (principal); Z3A.30 30 weeks gestation of pregnancy
CPT/HCPCS: 76815; 80307; 81001; 87086